=== PATIENT | female | born 2000 | race Caucasian/White ===

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

== ENCOUNTER 2022-05-26 00:38 | Outpatient (CLI) | payer OTHER | END 2022-05-26 01:23 | disposition home or self-care (01) | LOC: GENOP 00:38 | DX: O99.891 Other specified diseases and conditions complicating pregnancy (principal); M54.9 Dorsalgia, unspecified; Z3A.22 22 weeks gestation of pregnancy | CPT/HCPCS: G0463 ==